=== PATIENT | male | born 1995 | race African-American/Black ===

== ENCOUNTER 2018-10-18 09:18 | Emergency (ER) | payer SELFPAY ==
[~2018-10-18] VITALS: Ht 180.3 cm; Wt 75.0 kg
[2018-10-18] MEDS ORDERED: IBUPROFEN 600MG TABLET PO ONE (11:00)
[2018-10-18 12:47] VITALS: BP 128/77
== END 2018-10-18 13:08 | disposition home or self-care (01) ==
LOC: ER 09:33
DX: R51 Headache (principal); R27.0 Ataxia, unspecified; R42 Dizziness and giddiness; F12.90 Cannabis use, unspecified, uncomplicated
CPT/HCPCS: 99284

== ENCOUNTER 2019-08-04 21:54 | Emergency (ER) | payer MEDICAID ==
[~2019-08-04] VITALS: Ht 177.8 cm; Wt 82.0 kg
[2019-08-05] MEDS: TRAMADOL 50MG TABLET PO ONE (00:56)
[2019-08-05] MEDS: IBUPROFEN 600MG TABLET PO ONE (00:56)
[2019-08-05 01:58] VITALS: BP 142/83
== END 2019-08-05 02:23 | disposition home or self-care (01) ==
LOC: ER 21:54
DX: S62.92XA Unspecified fracture of left hand, initial encounter for closed fracture (principal); X58.XXXA Exposure to other specified factors, initial encounter; Y93.89 Activity, other specified; Y92.89 Other specified places as the place of occurrence of the external cause; Y99.8 Other external cause status; F12.10 Cannabis abuse, uncomplicated
CPT/HCPCS: 29125; 73130; 99283; Z7610

== ENCOUNTER 2020-04-27 10:26 | Emergency (ER) | payer MEDICAID ==
[~2020-04-27] VITALS: Ht 177.8 cm; Wt 100.0 kg
[2020-04-27] MEDS ORDERED: IBUPROFEN 800MG TABLET PO ONE (11:00)
[2020-04-27 12:10] VITALS: BP 127/97
== END 2020-04-27 12:10 | disposition home or self-care (01) ==
LOC: ER 10:26
DX: S62.91XA Unspecified fracture of right hand, initial encounter for closed fracture (principal); W22.8XXA Striking against or struck by other objects, initial encounter; Y93.89 Activity, other specified; Y92.89 Other specified places as the place of occurrence of the external cause; Y99.8 Other external cause status; F12.10 Cannabis abuse, uncomplicated
CPT/HCPCS: 29125; 73130; 99283

== ENCOUNTER 2025-01-11 14:54 | Emergency (ER) | payer MEDICAID ==
[~2025-01-11] VITALS: Ht 177.8 cm; Wt 75.0 kg
[2025-01-11 15:22] VITALS: TEMP 36.8; O2SAT 98
[2025-01-11 16:04] LABS: BASOPHILS % 0.8 % (0.0-2.0); DIFFERENTIAL COMMENT 0; EOSINOPHILS % 1.3 % (0.0-5.0); HEMATOCRIT. 39.2 % (42.0-52.0); HEMOGLOBIN. 12.7 g/dL (14.0-18.0); MEAN CORPUSCULAR HEMOGLOBIN 23.4 pg (28.0-32.0); MEAN CORPUSCULAR HGB CONC 32.4 g/dL (31.0-37.0); MEAN CORPUSCULAR VOLUME 72.2 fL (80.0-94.0); MEAN PLATELET VOLUME 8.9 fl (7.4-10.4); MONOCYTES % 8.1 % (2.0-8.0); NEUTROPHILS % 57.8 % (40.0-76.0); PLATELET 284 x1000/uL (130-400); RED BLOOD CELL COUNT 5.43 mill/uL (4.7-6.1); RED CELL DISTRIBUTION WIDTH 15.3 % (11.6-14.6)
[2025-01-11 16:11] LABS: CARBON DIOXIDE 26 mEq/L (21-32); CHLORIDE 108 mEq/L (98-107); SODIUM 140 mEq/L (136-145)
[2025-01-11 16:12] LABS: CALCIUM 9.6 mg/dL (8.7-10.4)
[2025-01-11 16:15] LABS: PARTIAL THROMBOPLASTIN TIME 27.3 sec (23.4-31.0); PROTHROMBIN TIME 11.2 sec (9.6-11.0)
[2025-01-11 16:16] LABS: CREATININE 0.9 mg/dL (0.6-1.3); GLUCOSE 83 mg/dL (70-105)
[2025-01-11 16:17] LABS: UREA NITROGEN BLOOD 10 mg/dL (9-23)
[2025-01-11 16:18] LABS: ALANINE AMINOTRANSFERASE 10 IU/L (10-49); ALBUMIN 4.2 g/dL (3.2-4.8); ASPARTATE AMINOTRANSFERASE 18 IU/L (<34)
[2025-01-11 16:19] LABS: BILIRUBIN TOTAL 0.6 mg/dL (0.1-1.0); PROTEIN TOTAL 7.2 g/dL (6.0-8.3)
[2025-01-11 17:19] VITALS: BP 120/72; PULSE 65; RESP 15; O2SAT 97
== END 2025-01-11 17:22 | disposition home or self-care (01) ==
LOC: ER 14:54
DX: N48.30 Priapism, unspecified (principal); F12.90 Cannabis use, unspecified, uncomplicated; Z79.899 Other long term (current) drug therapy
CPT/HCPCS: 36415; 80053; 85025; 86850; 86900; 99283